=== PATIENT | female | born 2000 | race Caucasian/White ===

== ENCOUNTER 2024-04-06 22:01 | Inpatient (IN) ==
[2024-04-07] MEDS: Lactated Ringers 1000 ml BAG 1,000 ML IV SCH ×2 (01:22→09:45)
[2024-04-07] MEDS: Prochlorperazine 5 mg/ml 2 ml VIAL (10 mg) IV PRN (01:39)
[2024-04-07 01:50] LABS: ABS Lymphocytes 1.5 10^3/uL (1.0-4.8); ABS Monocytes 0.7 10^3/uL (0.0-0.9); ABS Neutrophils 7.8 10^3/uL (1.5-7.6); ABS Nucleated RBC 0.01 10^3/ul; Eosinophil % 0.3 %; Hematocrit 33.5 % (35-45); Lymphocyte % 14.9 %; Mean Corpuscular Hemoglobin 27.8 pg (27-33); Mean Corpuscular Hgb Conc 32.7 g/dL (31-36); Mean Platelet Volume 9.7 fL (7.5-11.2); Nucleated Red Blood Cells % 0.1 %/100WBC (0.0-0.8); Platelet Count 277 10^3/uL (150-450); Red Blood Count 3.94 10^6/uL (3.63-4.92); Red Cell Distribution Width 14.6 % (12-17); White Blood Count 10.1 10^3/uL (3.8-11.8)
[2024-04-07 02:06] LABS: Urine Benzodiazepine Screen None Detected (None Detect); Urine Cannabinoids Screen None Detected (None Detect); Urine Opiates Screen None Detected (None Detect)
[2024-04-07] MEDS ORDERED: Lidocaine 1% VIAL 10 MG/ML 30 ML VIAL INJ PRN (05:34)
[2024-04-07] MEDS: Penicillin G Potassium IV 5,000,000 UNITS in NS 0.9% 100 ml BAG 100 ML IVPB ONE (06:00)
[2024-04-07] MEDS: OBEPIDURAL (200 ML) 200 ML EPIDURAL ONE (07:35)
[2024-04-07] MEDS: Lidocaine 1.5% EPI 1:200,000 30 ML SDV ONE (07:35)
[2024-04-07] MEDS: OBEPIDURAL (200 ML) 200 ML EPIDURAL SCH (07:35)
[2024-04-07] MEDS: Lactated Ringers 1000 ml BAG 1,000 ML IV ONE ×2 (07:45→08:00)
[2024-04-07] MEDS ORDERED: Phenylephrine 40 mcg/mL 10mL (400mcg) SYRINGE IV PUSH PRN ×2 (07:46)
[2024-04-07] MEDS ORDERED: Sodium Citrate/Citric Acid LIQ 15 ML UDC PO PRN (07:46)
[2024-04-07] MEDS: Buffered Lidocaine 1% SYRIN 1 ml INTRADERM ONE (08:07)
[2024-04-07 08:43] LABS: Urine Appearance Turbid; Urine Bilirubin Negative (Negative); Urine Blood 3+ (Negative); Urine Glucose 1+ (>=70 mg/dL) (Negative); Urine Ketones 3+ (Negative); Urine Nitrite Negative (Negative); Urine Protein Trace (Negative); Urine Specific Gravity 1.038 (1.002-1.030); Urine Urobilinogen Negative (Negative)
[2024-04-07 09:06] LABS: Urine Bacteria Absent /HPF (Absent); Urine Red Blood Cell 3+(>10/hpf) /HPF (0-Trace); Urine Squamous Epithelial Cell Present /HPF (Absent); Urine Transitional Epithelial Present /HPF (Absent); Urine White Blood Cell 1+(6-10/hpf) /HPF (0-Trace)
[2024-04-07 09:14] LABS: Urine Color Light-Yellow
[2024-04-07] MEDS ORDERED: Bupivacaine 0.25% SDV PF 10 ML VIAL INJ ONE (09:40)
[2024-04-07] MEDS: Penicillin G Potassium IV 3,000,000 UNITS in NS 0.9% 100 ml BAG 100 ML IVPB SCH (10:15)
[2024-04-07] MEDS ORDERED: Calcium Carb (TUMS) 500 mg CHEW TAB PO PRN (10:27)
[2024-04-07] MEDS: Ondansetron 4 mg VIAL 2 MG/ML 2 ml VIAL IV PRN (19:52)
[2024-04-07] MEDS: Oxytocin in LR 20,000 MILLI.UNIT/1,000 ML BAG IV SCH (19:53)
[2024-04-08] MEDS ORDERED: Glycerin ADULT 2.4 gm SUPP PR PRN (01:44)
[2024-04-08] MEDS ORDERED: Oxytocin in LR 20,000 MILLI.UNIT/1,000 ML BAG IV SCH (01:45)
[2024-04-08] MEDS: Witch Hazel PAD JAR TOPICAL PRN (02:23)
[2024-04-08] MEDS: Dibucaine 1% OINT 28.35 GM TUBE PR PRN (02:25)
[2024-04-08] MEDS: Lidocaine 1% w EPI 1:200,000 SDV 30 ML VIAL ONE (02:31)
[2024-04-09 08:27] LABS: ABS Eosinophils 0.1 10^3/uL (0.0-0.5); ABS Monocytes 0.7 10^3/uL (0.0-0.9); ABS Neutrophils 7.9 10^3/uL (1.5-7.6); Hematocrit 23.8 % (35-45); Lymphocyte % 18.4 %; Mean Corpuscular Hemoglobin 28.8 pg (27-33); Mean Corpuscular Hgb Conc 33.5 g/dL (31-36); Platelet Count 229 10^3/uL (150-450); Red Blood Count 2.77 10^6/uL (3.63-4.92); Red Cell Distribution Width 14.7 % (12-17); White Blood Count 10.7 10^3/uL (3.8-11.8)
[2024-04-09] MEDS: Iron Sucrose 200 MG in NS 0.9% 100 ml BAG 100 ML IVPB ONE (12:01)
[2024-04-09] MEDS: Phenylephrine 40 mcg/mL 10mL (400mcg) SYRINGE ONE (19:55)
[2024-04-09] MEDS: fentaNYL 100 mcg/2 ml 50 MCG/ML VIAL ONE (19:56)
[2024-04-09] MEDS: Lactated Ringers 1000 ml BAG 1,000 ML IV SCH (19:56)
[2024-04-09] MEDS: Lactated Ringers 1000 ml BAG 1,000 ML IV ONE (19:56)
[2024-04-10 07:16] LABS: ABS Eosinophils 0.2 10^3/uL (0.0-0.5); ABS Lymphocytes 1.8 10^3/uL (1.0-4.8); ABS Monocytes 0.6 10^3/uL (0.0-0.9); ABS Neutrophils 7.8 10^3/uL (1.5-7.6); ABS Nucleated RBC 0.01 10^3/ul; Eosinophil % 1.7 %; Hematocrit 25.5 % (35-45); Hemoglobin 8.6 g/dL (11.5-14.3); Lymphocyte % 17.3 %; Mean Corpuscular Hemoglobin 28.8 pg (27-33); Mean Corpuscular Hgb Conc 33.5 g/dL (31-36); Mean Corpuscular Volume 86.1 fL (80-97); Mean Platelet Volume 8.7 fL (7.5-11.2); Nucleated Red Blood Cells % 0.1 %/100WBC (0.0-0.8); Platelet Count 266 10^3/uL (150-450); Red Blood Count 2.97 10^6/uL (3.63-4.92); Red Cell Distribution Width 14.8 % (12-17); White Blood Count 10.4 10^3/uL (3.8-11.8)
[2024-04-10 08:25] VITALS: BP 121/98
== END 2024-04-10 11:39 | disposition home or self-care (01) | DRG 560 ==
LOC: MCHOBOUT 22:01 → MCHOB 04-07 05:27
PROVIDERS: ADMIT Advanced Practice Midwife